=== PATIENT | female | born 1945 ===

== ENCOUNTER 2016-12-25 12:08 | Day surgery (SDC) | payer MEDICARE ==
[2016-12-25] MEDS ORDERED: Vancomycin 500 mg (Oral/Rectal USE) ONE (13:34)
[2016-12-25] MEDS ORDERED: Vancomycin 1 g Inj ONE (13:34)
[2016-12-25] MEDS ORDERED: Lidocaine 1% w Epi 1:100,000 Inj ONE ×2 (13:35)
[2016-12-25 14:37] VITALS: O2SAT 100
[2016-12-25 15:05] VITALS: BP 152/56; PULSE 56; RESP 18; TEMP 97.1
== END 2016-12-25 15:06 | disposition home or self-care (01) ==
LOC: C.SPRAD 12:08
PROVIDERS: ATTEND Specialist
DX: R55 Syncope and collapse (principal); R00.2 Palpitations

== ENCOUNTER 2018-08-25 10:01 | Outpatient (CLI) | payer MEDICARE | END 2018-08-25 10:02 | disposition home or self-care (01) | LOC: C.CARD 10:02 | DX: R07.89 Other chest pain (principal); I34.0 Nonrheumatic mitral (valve) insufficiency; E11.9 Type 2 diabetes mellitus without complications; I10 Essential (primary) hypertension ==

== ENCOUNTER 2018-12-08 12:01 | Outpatient (CLI) | payer MEDICARE | END 2018-12-08 12:02 | disposition home or self-care (01) | LOC: C.MRIC 12:01 ==